=== PATIENT | male | born 1960 | race Caucasian/White ===

== ENCOUNTER 2021-09-21 05:50 | Observation (INO) | payer OTHER ==
[2021-09-20 09:47] LABS: BASOPHILS % 0.5 % (0.0-1.0); EOSINOPHILS # (AUTO) 0.1 (0.0-0.4); HEMATOCRIT 46.8 % (38.2-49.6); HEMOGLOBIN 15.3 g/dL (14.0-18.0); LYMPHOCYTES # (AUTO) 1.3 (1.0-3.2); LYMPHOCYTES % 20.8 % (18.0-39.1); MEAN CORPUSCULAR HEMOGLOBIN 29.8 pg (28-32); MEAN CORPUSCULAR HGB CONC 32.7 g/dL (31-35); MEAN CORPUSCULAR VOLUME 91.2 fL (81-99); MONOCYTES # (AUTO) 0.6 (0.2-0.8); MONOCYTES % 9.3 % (4.4-11.3); NEUTROPHILS % 67.2 % (38.7-80.0); PLATELET COUNT 228 x10e3/uL (140-360); RED BLOOD COUNT 5.13 x10e6/uL (4.3-5.7)
[2021-09-20 10:04] LABS: ANION GAP 13.1 mmol/L (8-16); CALCIUM 9.1 mg/dL (8.4-10.2); CREATININE, SERUM 0.81 mg/dL (0.72-1.25); POTASSIUM 4.1 mmol/L (3.5-5.1)
[2021-09-20 11:28] LABS: INR 0.96; PROTHROMBIN TIME 13.6 seconds (11.9-14.5)
[2021-09-20 11:29] LABS: PARTIAL THROMBOPLASTIN TIME 32.6 seconds (23.8-35.5)
[~2021-09-21] VITALS: Ht 170.2 cm; Wt 101.2 kg
[~2021-09-21 05:50] MED LIST: ASPIRIN81 MG PO; GABAPENTIN300 MG PO; TYLENOL EXTRA500 MG PO
[2021-09-21] MEDS ORDERED: LIDOCAINE 1% W/EPINEPHRINE 20 ML VIAL ONE (06:53)
[2021-09-21] MEDS ORDERED: Vancomycin IV 1 GM VIAL ONE (06:53)
[2021-09-21] MEDS ORDERED: THROMBIN FOR SOLN 5,000 UNIT VIAL ONE (06:54)
[2021-09-21] MEDS ORDERED: SODIUM CHLORIDE 0.9% 50ML 100 ML ONE (07:21)
[2021-09-21] MEDS ORDERED: HYDROCODON-ACE1 EA12 PO (09:58)
[2021-09-21] MEDS ORDERED: ZOLPIDEM TARTRATE 5 MG TAB PO PRN (10:00)
[2021-09-21] MEDS ORDERED: HYDROMORPHONE 2MG/ML 2 MG/ML ML IV PRN (10:00)
[2021-09-21] MEDS ORDERED: PROMETHAZINE HCL (IM) 25 MG/ML VIAL IM PRN (10:00)
[2021-09-21] MEDS: LACTATED RINGER'S 1,000 ML IV SCH ×3 (10:00→22:46)
[2021-09-21] MEDS ORDERED: MAGNESIUM/ALUMINUM/SIMETHICONE 30 ML UDC PO PRN (10:00)
[2021-09-21] MEDS ORDERED: Morphine 10mg syringe 10 MG/ML INJ IM PRN (10:00)
[2021-09-21] MEDS ORDERED: OXYCODONE/ACETAMINOPHEN 5-325 1 EACH TABLET PO PRN (10:00)
[2021-09-21] MEDS ORDERED: CARISOPRODOL 350 MG TAB PO PRN (10:00)
[2021-09-21] MEDS ORDERED: CEPACOL SORE THROAT LOZENGES PO PRN (10:00)
[2021-09-21] MEDS: ONDANSETRON HCL INJ 2MG/ML 2ML 2 MG/ML VIAL IV PRN ×2 (10:32→14:02)
[2021-09-21] MEDS ORDERED: METOCLOPRAMIDE HCL 10 MG/2ML VIAL ONE (10:37)
[2021-09-21] MEDS ORDERED: FENTANYL CITRATE/PF 100MCG/2 ML INJ ONE ×2 (10:45→12:24)
[2021-09-21 11:40] VITALS: BP 158/84
[2021-09-21] MEDS ORDERED: Morphine 4mg Syringe 4 MG/ML INJ IM PRN (12:00)
[2021-09-21 12:07] VITALS: BP 158/84
[2021-09-21] MEDS ORDERED: MIDAZOLAM HCL 2 MG/2 ML VIAL ONE (12:24)
[2021-09-21] MEDS: Cefazolin 1 GM in SODIUM CHLORIDE 0.9% 50ML 50 ML IV SCH ×2 (14:02→22:41)
[2021-09-21] MEDS ORDERED: SODIUM CHLORIDE 0.9% 250ML 250 ML ONE (14:12)
[2021-09-21 16:47] VITALS: BP 154/83
[2021-09-21] MEDS: GABAPENTIN 300 MG CAP PO SCH (16:54)
[2021-09-21] MEDS ORDERED: LIDOCAINE HCL 2% LOCAL INJ 5 ML SDV VIAL INJ ONE (18:12)
[2021-09-21] MEDS ORDERED: SEVOFLURANE INHAL SOLN 250 ML PEN BTL ONE (18:12)
[2021-09-21] MEDS ORDERED: ROCURONIUM BROMIDE 10 MG/ML 5ML VIAL IV ONE (18:12)
[2021-09-21] MEDS ORDERED: PROPOFOL IV EMULSION 10 MG/ML 20 ML VIAL ONE (18:12)
[2021-09-21] MEDS ORDERED: EPHEDRINE SULFATE INJ 50 MG/ML VIAL ONE (18:12)
[2021-09-21] MEDS ORDERED: POVIDONE IODINE 0.05% 0.05 % ML PO ONE (18:12)
[2021-09-21] MEDS ORDERED: ONDANSETRON HCL INJ 2MG/ML 2ML 2 MG/ML VIAL ONE (18:12)
[2021-09-21] MEDS ORDERED: DEXAMETHASONE SOD PHOS INJ 4 MG/ML SDV ONE (18:12)
[2021-09-21 20:00] VITALS: BP 167/87
[2021-09-21 20:27] VITALS: BP 167/87
[2021-09-21] MEDS: ACETAMINOPHEN 325 MG TAB PO PRN (22:42)
[2021-09-22] VITALS: BP 151/77
[2021-09-22 04:00] VITALS: BP 177/90
[2021-09-22] MEDS: ACETAMINOPHEN 325 MG TAB PO PRN (04:50)
[2021-09-22] MEDS: Cefazolin 1 GM in SODIUM CHLORIDE 0.9% 50ML 50 ML IV SCH (05:11)
[2021-09-22 08:08] VITALS: BP 162/78
[2021-09-22 08:40] VITALS: BP 162/78
[2021-09-22] MEDS: GABAPENTIN 300 MG CAP PO SCH (08:40)
== END 2021-09-22 10:25 | disposition home or self-care (01) ==
LOC: OR 05:50 → PACU V 09:52 → MED/SURG 11:35
PROVIDERS: ADMIT Neurological Surgery; ATTEND Neurological Surgery
DX: M50.020 Cervical disc disorder with myelopathy, mid-cervical region, unspecified level (principal); Z20.822 Contact with and (suspected) exposure to COVID-19; Z01.818 Encounter for other preprocedural examination
CPT/HCPCS: 20931; 22551; 22552; 22845; 36415; 71046; 72040; 76000; 80048; 85025; 85610; 85730; 86850; 86900; 88304; 93005; C1713 ×5; C1763; G0378 ×2; J0690 ×2; J1100; J1170; J2001; J2250; J2405; J2704; J2765; J3010; J3370; J7050; U0002; 88311

== ENCOUNTER → 2021-10-19 | Outpatient (CLI) | payer OTHER ==
[~2021-10-19] MED LIST changes: +HYDROCODON-ACE1 EA12 PO
== END ==
LOC: RAD 12:20
PROVIDERS: ATTEND Neurological Surgery
DX: M50.20 Other cervical disc displacement, unspecified cervical region (principal); M43.22 Fusion of spine, cervical region
CPT/HCPCS: 72050

== ENCOUNTER 2025-01-28 05:49 | Observation (INO) | payer MEDICARE, OTHER ==
[2025-01-25 14:09] LABS: BASOPHILS % 0.5 % (0.0-1.0); EOSINOPHILS # (AUTO) 0.1 (0.0-0.4); EOSINOPHILS % 1.3 % (0.0-6.0); HEMATOCRIT 45.4 % (38.2-49.6); HEMOGLOBIN 15.3 g/dL (14.0-18.0); LYMPHOCYTES # (AUTO) 1.2 (1.0-3.2); LYMPHOCYTES % 15.6 % (18.0-39.1); MEAN CORPUSCULAR HEMOGLOBIN 30.8 pg (28-32); MEAN CORPUSCULAR HGB CONC 33.7 g/dL (31-35); MEAN CORPUSCULAR VOLUME 91.5 fL (81-99); MONOCYTES # (AUTO) 0.6 (0.2-0.8); MONOCYTES % 7.9 % (4.4-11.3); NEUTROPHILS # (AUTO) 5.8 (2.1-6.9); NEUTROPHILS % 74.3 % (38.7-80.0); PLATELET COUNT 277 x10e3/uL (140-360); RED BLOOD COUNT 4.96 x10e6/uL (4.3-5.7); RED CELL DISTRIBUTION WIDTH 13.2 % (11.7-14.4); WHITE BLOOD COUNT 7.74 x10e3/uL (4.8-10.8)
[2025-01-25 14:28] LABS: INR 0.9; PROTHROMBIN TIME 12.7 seconds (11.9-14.5)
[2025-01-25 14:32] LABS: ANION GAP 13.4 mmol/L (8-16); CALCIUM 9.4 mg/dL (8.4-10.2); POTASSIUM 4.4 mmol/L (3.5-5.1)
[~2025-01-28] VITALS: Ht 170.2 cm; Wt 96.7 kg
[~2025-01-28 05:49] MED LIST changes: +HYDROCHLOROTH12.5 MG PO; +LISINOPRIL10 MG PO; +MELATONIN3 MG PO
[2025-01-28] MEDS: LACTATED RINGER'S 1,000 ML ONE (06:42)
[2025-01-28] MEDS: CEFAZOLIN SODIUM 2 GM ONE (06:42)
[2025-01-28] MEDS ORDERED: ROCURONIUM BROMIDE 1 ML IV ONE (07:17)
[2025-01-28] MEDS ORDERED: LIDOCAINE HCL 2% LOCAL INJ 5 ML SDV VIAL INJ ONE (07:17)
[2025-01-28] MEDS ORDERED: MIDAZOLAM HCL 2 MG/2 ML VIAL ONE (07:17)
[2025-01-28] MEDS ORDERED: FENTANYL CITRATE/PF 100MCG/2 ML INJ ONE (07:17)
[2025-01-28] MEDS ORDERED: KETAMINE HCL INJ 50 MG/ML 10 ML VIAL ONE (07:18)
[2025-01-28] MEDS ORDERED: SEVOFLURANE INHAL SOLN 250 ML PEN BTL ONE (07:18)
[2025-01-28] MEDS ORDERED: PROPOFOL IV EMULSION 10 MG/ML 20 ML VIAL ONE (07:18)
[2025-01-28] MEDS ORDERED: ACETAMINOPHEN 1000 MG/100 ML 100 ML IV ONE (07:18)
[2025-01-28] MEDS ORDERED: DEXAMETHASONE SOD PHOS INJ 4 MG/ML SDV ONE (08:21)
[2025-01-28] MEDS ORDERED: ONDANSETRON HCL INJ 2MG/ML 2ML 2 MG/ML VIAL ONE (08:21)
[2025-01-28] MEDS ORDERED: METOCLOPRAMIDE HCL 10 MG/2ML VIAL ONE (08:33)
[2025-01-28] MEDS ORDERED: FAMOTIDINE 20 MG/2 ML VIAL IV ONE (08:33)
[2025-01-28] MEDS ORDERED: SUGAMMADEX SODIUM 200 MG/2 ML VIAL IV ONE (08:56)
[2025-01-28] MEDS ORDERED: CARISOPRODOL 350 MG TAB PO PRN (09:45)
[2025-01-28] MEDS ORDERED: CEPACOL SORE THROAT LOZENGES PO PRN (09:45)
[2025-01-28] MEDS ORDERED: OXYCODONE/ACETAMINOPHEN 5-325 1 EACH TABLET PO PRN ×2 (09:45→10:45)
[2025-01-28] MEDS ORDERED: ONDANSETRON HCL INJ 2MG/ML 2ML 2 MG/ML VIAL IV PRN (09:45)
[2025-01-28] MEDS ORDERED: MAGNESIUM/ALUMINUM/SIMETHICONE 30 ML UDC PO PRN (09:45)
[2025-01-28] MEDS ORDERED: ACETAMINOPHEN 325 MG TAB PO PRN (09:45)
[2025-01-28] MEDS ORDERED: ZOLPIDEM TARTRATE 5 MG TAB PO PRN (09:45)
[2025-01-28] MEDS ORDERED: Morphine 10mg syringe 10 MG/ML INJ IM PRN (09:45)
[2025-01-28] MEDS ORDERED: HYDROMORPHONE 2MG/ML IV PRN (09:45)
[2025-01-28] MEDS ORDERED: PROMETHAZINE HCL (IM) 25 MG/ML VIAL IM PRN (09:45)
[2025-01-28 10:45] VITALS: BP 146/82; PULSE 73; RESP 17; TEMP 97.6; O2SAT 99
[2025-01-28 10:51] VITALS: BP 146/82; PULSE 73; RESP 16; TEMP 97.6; O2SAT 99
[2025-01-28] MEDS: LACTATED RINGER'S 1,000 ML IV SCH (11:19)
[2025-01-28 12:17] VITALS: BP 146/82; PULSE 73; RESP 16; TEMP 97.6; O2SAT 99
[2025-01-28 19:37] VITALS: BP 157/80; RESP 18; TEMP 97.9; O2SAT 98
[2025-01-28] MEDS: MELATONIN 3 MG TAB PO SCH (21:11)
[2025-01-28] MEDS: GABAPENTIN 300 MG CAP PO SCH (21:11)
[2025-01-28 22:13] VITALS: BP 157/80; PULSE 73; RESP 18; TEMP 97.9; O2SAT 98
[2025-01-28 23:36] VITALS: BP 133/71; PULSE 73; RESP 19; TEMP 97.7; O2SAT 100
[2025-01-29 04:14] VITALS: BP 148/72; PULSE 60; RESP 19; TEMP 98.2; O2SAT 100
[2025-01-29 07:11] VITALS: BP 152/67; PULSE 77; RESP 16; TEMP 97.8; O2SAT 99
[2025-01-29 09:50] VITALS: BP 152/67
[2025-01-29] MEDS: LISINOPRIL 10 MG TAB PO SCH (09:50)
[2025-01-29] MEDS: HYDROCHLOROTHIAZIDE 25 MG TAB PO SCH (09:50)
== END 2025-01-29 10:10 | disposition home or self-care (01) ==
LOC: OR 05:49 → PACU V 09:52 → MED/SURG 10:57
PROVIDERS: ADMIT Neurological Surgery; ATTEND Neurological Surgery
DX: M50.023 Cervical disc disorder at C6-C7 level with myelopathy (principal); I10 Essential (primary) hypertension; Z71.82 Exercise counseling; Z88.8 Allergy status to other drugs, medicaments and biological substances; Z01.810 Encounter for preprocedural cardiovascular examination; Z01.812 Encounter for preprocedural laboratory examination; Z01.818 Encounter for other preprocedural examination; Z79.82 Long term (current) use of aspirin; Z79.899 Other long term (current) drug therapy; Z68.33 Body mass index [BMI] 33.0-33.9, adult; Z71.3 Dietary counseling and surveillance
CPT/HCPCS: 20931; 22551; 22845; 36415; 71046; 72040; 80048; 85025; 85610; 85730; 86850; 86900; 88304; 88311; 93005; C1713 ×2; G0378 ×2; J0131; J0690 ×2; J1100; J1308; J2003; J2250; J2405; J2704; J2765; J3010; J7121; 76000

== ENCOUNTER 2025-05-04 09:00 | Outpatient (RCR) | payer MEDICARE | END 2025-05-20 | LOC: PT 09:00 | PROVIDERS: ATTEND Neurological Surgery | DX: M47.816 Spondylosis without myelopathy or radiculopathy, lumbar region (principal) ==